=== PATIENT | male | born 1960 | race Caucasian/White ===

== ENCOUNTER 2024-05-31 10:20 | Observation (INO) | payer OTHER ==
[2024-05-31] MEDS: Ketorolac 30 MG/ML SDV IVPUSH SCH ×2 (12:05→18:44)
[2024-05-31] MEDS: Lactated Ringers 1,000 ML IV SCH ×2 (12:05→20:50)
[2024-05-31] MEDS ORDERED: fentaNYL 250 MCG/5 ML SDV ONE (12:06)
[2024-05-31] MEDS ORDERED: propofoL 500 MG/50 ML 50 ML ONE (12:06)
[2024-05-31] MEDS: Morphine 2 MG/ML SYRINGE IVPUSH PRN (12:06)
[2024-05-31] MEDS: cefOXitin 2 GM in Sodium Chloride 0.9% 50 ML IV SCH ×2 (12:06→16:54)
[2024-05-31] MEDS ORDERED: Midazolam 1 MG/ML 2 ML SDV ONE (12:06)
[2024-05-31] MEDS ORDERED: Dexamethasone 4 MG/ML 5 ML MDV ONE (12:09)
[2024-05-31] MEDS ORDERED: Lidocaine 1% 5 ML VIAL ONE (12:09)
[2024-05-31] MEDS ORDERED: Lidocaine 2% 11 ML Jelly Filled Syringe ONE (12:09)
[2024-05-31] MEDS ORDERED: Rocuronium 50 MG/5 ML Vial ONE (12:09)
[2024-05-31] MEDS ORDERED: Ondansetron 4 MG/2 ML SDV ONE (12:09)
[2024-05-31] MEDS ORDERED: Lactated Ringers 1,000 ML ONE (14:14)
[2024-05-31] MEDS ORDERED: HYDROmorphone 0.5 MG/0.5 ML Syringe ONE ×2 (14:26→14:37)
[2024-05-31] MEDS ORDERED: Ondansetron 4 MG/2 ML SDV IVPUSH PRN (14:40)
[2024-05-31] MEDS ORDERED: fentaNYL 100 MCG/2 ML SDV IVPUSH PRN (14:40)
[2024-05-31] MEDS ORDERED: HYDROmorphone 0.5 MG/0.5 ML Syringe IVPUSH PRN (14:40)
[2024-05-31] MEDS ORDERED: Propofol 200 MG/20 ML SDV ONE (14:50)
[2024-05-31] MEDS ORDERED: Sugammadex Sodium 200 MG/2 ML VIAL IV ONE (14:53)
[2024-05-31] MEDS ORDERED: Morphine 4 MG/ML Syringe IVPUSH PRN (15:20)
[2024-05-31] MEDS ORDERED: Morphine 2 MG/ML SYRINGE IVPUSH PRN (15:24)
[2024-05-31] MEDS: Heparin Sodium 5,000 Units/ML Vial SUBCUT ONE (15:33)
[2024-05-31] MEDS: Acetaminophen 325 MG Tab PO ONE (15:33)
[2024-05-31] MEDS: Heparin Sodium 5,000 Units/ML Vial SUBCUT SCH (16:54)
[2024-06-01] MEDS: amLODIPine 10 MG Tab PO SCH (08:20)
[2024-06-01] MEDS: Metoprolol Succinate 25 MG Tab.ER PO SCH (08:21)
== END 2024-06-01 10:40 | disposition home or self-care (01) ==
LOC: JD.ED 10:20 → JD.SDS 11:42 → JD.MS 13:51 → JD.SDS 15:14 → JD.MS 15:15
PROVIDERS: ADMIT Surgery; ATTEND Surgery
DX: K35.33 Acute appendicitis with perforation, localized peritonitis, and gangrene, with abscess (principal); K42.9 Umbilical hernia without obstruction or gangrene; I10 Essential (primary) hypertension; Z87.891 Personal history of nicotine dependence
CPT/HCPCS: 44979; 49591; 93005; A9270; J0694; J1100; J1644; J1885; J2003; J2250; J2270; J2405; J2704; J3010; J3490; J7120